=== PATIENT | female | born 1930 | race Native Hawaiian/Other Pacific Islander ===

== ENCOUNTER 2018-01-07 15:46 | Outpatient (CLI) | payer OTHER | END 2018-01-07 21:08 | disposition home or self-care (01) | LOC: RAD 15:46 | DX: M17.0 Bilateral primary osteoarthritis of knee (principal) ==

== ENCOUNTER 2018-07-28 14:18 | Outpatient (CLI) | payer OTHER | END 2018-07-28 19:28 | disposition home or self-care (01) | LOC: RAD 14:18 | DX: M05.79 Rheumatoid arthritis with rheumatoid factor of multiple sites without organ or systems involvement (principal) ==

== ENCOUNTER 2019-03-10 16:09 | Outpatient (CLI) | payer OTHER ==
[2019-03-10 17:24] LABS: PLATELET COUNT 278 K/uL (152-353)
== END 2019-03-10 20:11 | disposition home or self-care (01) ==
LOC: LABW 16:09
PROVIDERS: Internal Medicine
DX: I82.493 Acute embolism and thrombosis of other specified deep vein of lower extremity, bilateral (principal)
CPT/HCPCS: 36415; 80053; 85027

== ENCOUNTER 2019-05-09 11:32 | Emergency (ER) | payer OTHER ==
[~2019-05-09] VITALS: Ht 152.4 cm; Wt 74.8 kg
[2019-05-09 11:40] VITALS: TEMP 98.2
[2019-05-09 12:45] LABS: PLATELET COUNT 244 K/uL (152-353)
[2019-05-09 13:03] LABS: POTASSIUM 3.6 mmol/L (3.6-5.2); SODIUM 139 mmol/L (136-145)
[2019-05-09 15:40] VITALS: BP 161/53
== END 2019-05-09 15:40 | disposition home or self-care (01) ==
LOC: ED 11:32
PROVIDERS: Student in an Organized Health Care Education/Training Program
DX: J18.9 Pneumonia, unspecified organism (principal); I45.81 Long QT syndrome
CPT/HCPCS: 80053; 81000; 82962; 83735; 84443; 84484; 85027; 87040; 93005; 96365; 99284; J0696